=== PATIENT | male | born 1990 | race Caucasian/White ===

== ENCOUNTER 2022-01-04 15:19 | Emergency (ER) | payer OTHER ==
[~2022-01-04 15:19] MED LIST: BACTROBAN OINT22 GM EXT; IBUPROFEN600 MG PO; PROTONIX40 MG PO
[2022-01-04 15:44] LABS: HEMOGLOBIN 15.7 gm/dl (14.0-17.5); RED BLOOD COUNT 5.18 M/UL (4.20-5.50)
[2022-01-04 16:13] LABS: BUN/CREATININE RATIO 17 (0-10)
[2022-01-04] MEDS ORDERED: IBUPROFEN800 MG PO (18:56)
== END 2022-01-04 19:29 | disposition home or self-care (01) ==
LOC: ER1 15:19
PROVIDERS: Nurse Practitioner
DX: R07.89 Other chest pain (principal); Z90.89 Acquired absence of other organs
CPT/HCPCS: 71045; 80053; 81001; 82550; 82553; 84484; 85025; 85379; 85652; 86140; 93005; 96374; 96375; 99285; C9113; J1885